=== PATIENT | male | born 1980 | race Caucasian/White ===

== ENCOUNTER 2024-03-04 06:28 | Emergency (ER) | payer OTHER ==
[~2024-03-04] VITALS: Ht 172.7 cm; Wt 74.8 kg
[2024-03-04] MEDS: HYDROCODONE/APAP 10/325MG TABLET PO ONE (07:00)
[2024-03-04] MEDS ORDERED: HYDROCODONE/APAP 10/325MG TABLET ONE (07:20)
[2024-03-04] MEDS ORDERED: CYCL10TA9 PO (08:30)
[2024-03-04] MEDS ORDERED: IBUP-1490 PO (08:30)
[2024-03-04] MEDS ORDERED: IBUPROFEN 400 MG TABLET ONE (08:33)
[2024-03-04] MEDS: IBUPROFEN 400 MG TABLET PO ONE (08:35)
[2024-03-04 08:53] VITALS: BP 134/94; TEMP 98; O2SAT 96
== END 2024-03-04 08:55 | disposition home or self-care (01) ==
LOC: ER 06:42
DX: S33.5XXA Sprain of ligaments of lumbar spine, initial encounter (principal); S80.12XA Contusion of left lower leg, initial encounter; V49.69XA Unspecified car occupant injured in collision with other motor vehicles in traffic accident, initial encounter; Y93.89 Activity, other specified; Y92.488 Other paved roadways as the place of occurrence of the external cause; Y99.8 Other external cause status
CPT/HCPCS: 72128-TC; 72131-TC; 73590-TC